=== PATIENT | female | born 1990 | race Caucasian/White ===

== ENCOUNTER 2017-05-27 08:00 | Emergency (ER) | payer SELFPAY ==
[~2017-05-27] VITALS: Ht 165.1 cm; Wt 68.0 kg
[~2017-05-27 08:00] MED LIST: AC500T PO; IBP600T1 PO; NITR100C3 PO; PREN1TAB14 PO; SULF1TAB35 PO
--- NOTE | 2017-05-27 09:12 | ED Integumentary General ---
General Chief Complaint: Skin/Wound Problems Stated Complaint: THINKS SHE HAS MRSA Nursing Triage Note: Multiple abscesses over body. Worse on right face. Onset 10 todays ago. Source: patient Exam Limitations: no limitations History of Present Illness Time seen by provider: 09:07 Initial Comments The patient is a 27-year-old white female. She reports that over the last 10 days she has had the outbreak of multiple lesions over the body. In the last few days this is involved the face which has particularly troubled her but she is also had lesions on the forearms and thighs the perineum and the armpits. A few of these have been pustular. She states that her mother and brother have had previous difficulties with MRSA and her mother visited her home at the onset of this and swim in her pool and use the shower and bathroom. She is not clear whether she used her razor. She does not have a prior history of this problem Timing/Duration: other Location: scalp, face, torso, extremities, genitalia Possible Cause: exposure to illness Allergies and Home Medications Allergies Coded Allergies: No Known Drug Allergies (Unverified , 10/12/11) Constitutional: see HPI EENTM: no symptoms reported Respiratory: no symptoms reported Cardiovascular: no symptoms reported Gastrointestinal: no symptoms reported Genitourinary: no symptoms reported Musculoskeletal: no symptoms reported Skin: see HPI Psychiatric/Neurological: No Symptoms Reported Endocrine: No Symptoms Reported Hematologic/Lymphatic: No Symptoms Reported Past Btwlmpb-Imcrhi-Mpevnz Hx Patient Social History Alcohol Use: Denies Use Recreational Drug Use: No Smoking Status: Current Someday Smoker Recent Foreign Travel: No Contact w/Someone Who Travel: No Recent Infectious Disease Expo: No Immunizations Up To Date Tetanus Booster (TDap): Unknown Seasonal Allergies Seasonal Allergies: No Surgeries HX Surgeries: No Respiratory Hx Respiratory Disorders: No Cardiovascular Hx Cardiac Disorders: No Neurological Hx Neurological Disorders: No Reproductive System Hx Reproductive Disorders: No Sexually Transmitted Disease: No HIV/AIDS: No Genitourinary Hx Genitourinary Disorders: No Gastrointestinal Hx Gastrointestinal Disorders: No Musculoskeletal Hx Musculoskeletal Disorders: No Endocrine Hx Endocrine Disorders: No HEENT HX ENT Disorders: No Cancer Hx Cancer: No Psychosocial Hx Psychiatric Problems: No Integumentary HX Skin/Integumentary Disorder: No Blood Transfusions Hx Blood Disorders: No Physical Exam Vital Signs Vital Sign - Last 12Hours 05/27/17 08:25 Temp 97.5 Pulse 90 Resp 16 B/P (MAP) 139/103 Pulse Ox 98 O2 Delivery Room Air Capillary Refill : Less Than 3 Seconds General Appearance: mild distress HEENT: normal ENT inspection Neck: full range of motion Cardiovascular: normal peripheral pulses, regular rate, rhythm, no edema, no gallop, no JVD, no murmur Respiratory: chest non-tender, lungs clear, normal breath sounds, no respiratory distress, no accessory muscle use Back: normal inspection Extremities: normal range of motion Comments There is a 5 cm erythematous flat lesions on the right cheek. There are multiple lesions at the frontal hairline several into the anterior scalp. None of these are pustules. There is a tender lesion in the left axilla. There are multiple lesions on both forearms. Several of these appeared to be old and resolving. Similarly there are multiple lesions in the anterior thighs also of variable age. Progress/Results/Core Measures Results/Orders Vital Signs/I&O Vital Sign - Last 12Hours 05/27/17 08:25 Temp 97.5 Pulse 90 Resp 16 B/P (MAP) 139/103 Pulse Ox 98 O2 Delivery Room Air Blood Pressure Mean: 115 Departure Impression Impression: Primary Impression: mrsa skin lesions Disposition: HOME, SELF-CARE Condition: Stable/Unchanged Departure-Patient Inst. Decision time for Depature: 09:16 Referrals: JOY ALBERTO MD (PCP/Family) Primary Care Physician Patient Instructions: Skin Abscess Add. Discharge Instructions: All discharge instructions reviewed with patient and/or family. Voiced understanding. Use Bactroban to the lesions twice daily. Absolutely do not share personal items such as clothing and bed sheets, towels washcloths razors tweezers. Take doxycycline twice daily as prescribed. See your provider at [facility] in about 10 days to assess your progress. Scripts Mupirocin Calcium (Bactroban) 15 Gm Cream..g. 15 GM TP TWICE A DAY, #1 TUBE 1 Refill Prov: KATERYNA WISEMAN MD 05/27/17 Doxycycline Hyclate (Doxycycline Hyclate) 100 Mg Tablet 100 MG PO TWICE A DAY, #28 TAB Prov: KATERYNA WISEMAN MD 05/27/17 KATERYNA WISEMAN MD May 27, 2017 09:12
[2017-05-27] MEDS ORDERED: DOXY100T2 PO (09:24)
[2017-05-27] MEDS ORDERED: MUPI15CR TP (09:24)
[2017-05-27 09:28] VITALS: BP 130/92
== END 2017-05-27 09:28 | disposition home or self-care (01) ==
LOC: EDUNIT# 08:00 → ER 08:04
DX: L98.9 Disorder of the skin and subcutaneous tissue, unspecified (principal); B95.62 Methicillin resistant Staphylococcus aureus infection as the cause of diseases classified elsewhere
CPT/HCPCS: 87081; 99282